=== PATIENT | male | born 1995 | race African-American/Black ===

== ENCOUNTER 2024-01-13 13:05 | Outpatient (OUT) | payer OTHER, SELFPAY ==
--- NOTE | 2024-01-13 13:15 | US_ITS ---
The [address] [address] Patient Name: ANASTASIIA FLORES MRN: [id number] date: 1995 Sex: M Assigned Patient Location: US Current Patient Location: US Accession/Order Number: [id number] Exam Date: 01/13/2024 13:20 Report Date: 01/13/2024 14:14 At the request of: TATYANA DESHPANDE Procedure: US venous doppler LE BI Ultrasound venous duplex scan, bilateral lower extremities CLINICAL: Bilateral lower extremity swelling. TECHNIQUE: Hernandez-scale, color-flow, and Doppler examination of both legs was performed with and without provocative maneuvers. FINDINGS: Comparison: None. Sonographic examination of both lower extremity deep venous systems to include the common femoral veins, superficial femoral veins, and popliteal veins demonstrates normal compressibility, color-flow, phasic variation, and augmentation. The origins of the greater saphenous veins on both sides demonstrate normal compression, with normal color-flow at the origins of the proximal profunda femoris veins. There is normal color-flow in the anterior tibial, posterior tibial, and peroneal veins on both sides. US/US venous doppler LE BI IMPRESSION: 1. No sonographic evidence of deep venous thrombosis in either lower extremity. Electronically authenticated by: JOAQUÍN PASCAL Date: 01/13/2024 14:14
== END 2024-01-13 13:06 | disposition home or self-care (01) ==
PROVIDERS: PCP Nurse Practitioner Primary Care; Visit Provider Nurse Practitioner Primary Care
DX: R60.0 Localized edema (principal)
CPT/HCPCS: 93970